=== PATIENT | male | born 1960 | race African-American/Black ===

== ENCOUNTER 2018-01-24 13:50 | Emergency (ER) | payer SELFPAY ==
--- NOTE | 2018-01-24 14:17 | ER Document Report ---
ED Medical Screen (RME) - General Chief Complaint: Flank Pain Stated Complaint: BACK PAIN, BODY PAIN Time Seen by Provider: 01/24/18 14:14 Mode of Arrival: Ambulatory Information source: Patient, [facility] Records Notes: 57-year-old male with diabetes presents with complaint of abdominal pain and lower extremity pain that started 1 week prior to arrival. Patient states the pain started in his feet and a scented to his abdomen. He describes it as sharp , intermittent. Admits that his sugars have been running high. I have greeted and performed a rapid initial assessment of this patient. A comprehensive ED assessment and evaluation of the patient, analysis of test results and completion of medical decision making process we will be contacted by additional ED providers. PHYSICAL EXAMINATION: Vital signs reviewed-tachycardic GENERAL: Well-appearing, well-nourished and in no acute distress. LUNGS: No respiratory distress Musculoskeletal: Normal range of motion NEUROLOGICAL: Normal speech, normal gait. PSYCH: Normal mood, normal affect. SKIN: Warm, Dry, normal turgor, no rashes or lesions noted. TRAVEL OUTSIDE OF THE [place] IN LAST 30 DAYS: No - HPI Onset: Other Onset/Duration: Persistent Quality of pain: Burning, Stabbing Severity: Moderate Associated Symptoms: denies: Chest pain, Fever Exacerbated by: Denies Relieved by: Denies Similar symptoms previously: Yes Recently seen / treated by doctor: No - Related Data Allergies/Adverse Reactions: No Known Allergies Allergy (Unverified 10/06/14 22:13) Past Medical History - Immunizations Hx Diphtheria, Pertussis, Tetanus Vaccination: Yes Physical Exam - Vital signs Vitals: Temp Pulse Resp BP Pulse Ox 98.7 F 102 H 20 150/95 H 100 01/24/18 14:07 01/24/18 14:07 01/24/18 14:07 01/24/18 14:07 01/24/18 14:07 Course - Vital Signs Vital signs: Temp Pulse Resp BP Pulse Ox 98.7 F 102 H 20 150/95 H 100 01/24/18 14:07 01/24/18 14:07 01/24/18 14:07 01/24/18 14:07 01/24/18 14:07 Doctor's Discharge - Discharge Referrals: KALPANA SHARP MD [Primary Care Provider] - Follow up as needed
[2018-01-24 15:41] LABS: ABSOLUTE BASOPHILS # (AUTO) 0.1 10^3/uL (0.0-0.2); ABSOLUTE EOSINOPHILS # (AUTO) 0.8 10^3/uL (0.0-0.6); ABSOLUTE LYMPHOCYTES (AUTO) 1.8 10^3/uL (0.5-4.7); ABSOLUTE MONOCYTES (AUTO) 0.5 10^3/uL (0.1-1.4); ABSOLUTE NEUT (AUTO) 3.8 10^3/uL (1.7-8.2); BASOPHILS % (AUTO) 0.9 % (0-2); EOSINOPHILS % (AUTO) 11.8 % (0-6); HEMATOCRIT 43.5 % (37.9-51.0); HEMOGLOBIN 14.4 g/dL (13.5-17.0); LYMPHOCYTES % (AUTO) 26.5 % (13-45); MEAN CORPUSCULAR HEMOGLOBIN 27.3 pg (27.0-33.4); MEAN CORPUSCULAR VOLUME 83 fl (80-97); MONOCYTES % (AUTO) 6.5 % (3-13); PLATELET COUNT 269 10^3/uL (150-450); RED BLOOD COUNT 5.25 10^6/uL (4.35-5.55); RED CELL DISTRIBUTION WIDTH 13.1 % (11.5-14.0); SEGMENTED NEUTROPHILS % (AUTO) 54.3 % (42-78); TOTAL CELLS COUNTED % (AUTO) 100 %; WHITE BLOOD COUNT 6.9 10^3/uL (4.0-10.5)
[2018-01-24 15:42] LABS: APPEARANCE,URINE CLEAR; BILIRUBIN,URINE NEGATIVE (NEGATIVE); COLOR,URINE YELLOW; GLUCOSE, URINE >=500 mg/dL (NEGATIVE); KETONES,URINE NEGATIVE (NEGATIVE); LEUKOCYTE ESTERASE,URINE NEGATIVE (NEGATIVE); NITRITE,URINE NEGATIVE (NEGATIVE); PROTEIN,URINE 30 mg/dL (NEGATIVE); URINE SPECIFIC GRAVITY 1.023; UROBILINOGEN,URINE NEGATIVE mg/dL (<2.0)
[2018-01-24 16:05] LABS: ALANINE AMINOTRANSFERASE 13 U/L (21-72); ALBUMIN 4.8 g/dL (3.5-5.0); ALKALINE PHOSPHATASE 84 U/L (38-126); ANION GAP 10 (5-19); ASPARTATE AMINO TRANSFERASE 23 U/L (17-59); BILIRUBIN,DIRECT 0.3 mg/dL (0.0-0.4); BILIRUBIN,TOTAL 0.7 mg/dL (0.2-1.3); BLOOD UREA NITROGEN 13 mg/dL (7-20); CALCIUM 9.8 mg/dL (8.4-10.2); CARBON DIOXIDE 25 mmol/L (22-30); CHLORIDE 103 mmol/L (98-107); GLUCOSE 217 mg/dL (75-110); LIPASE 274.8 U/L (23-300); POTASSIUM 4.1 mmol/L (3.6-5.0); SODIUM 138.1 mmol/L (137-145)
--- NOTE | 2018-01-24 17:05 | ER Document Report ---
ED General - General Chief Complaint: Flank Pain Stated Complaint: BACK PAIN, BODY PAIN Time Seen by Provider: 01/24/18 14:14 Mode of Arrival: Ambulatory TRAVEL OUTSIDE OF THE [place] IN LAST 30 DAYS: No - Related Data Allergies/Adverse Reactions: No Known Allergies Allergy (Unverified 10/06/14 22:13) Past Medical History - General Information source: Patient, [facility] Records - Social History Smoking Status: Current Some Day Smoker Frequency of alcohol use: 1-2 times a week Drug Abuse: None Family History: Reviewed & Not Pertinent Patient has suicidal ideation: No Patient has homicidal ideation: No Endocrine Medical History: Reports: Hx Diabetes Mellitus Type 2 Renal/ Medical History: Denies: Hx Peritoneal Dialysis - Immunizations Hx Diphtheria, Pertussis, Tetanus Vaccination: Yes Physical Exam - Vital signs Vitals: Temp Pulse Resp BP Pulse Ox 98.7 F 102 H 20 150/95 H 100 01/24/18 14:07 01/24/18 14:07 01/24/18 14:07 01/24/18 14:07 01/24/18 14:07 Course - Vital Signs Vital signs: Temp Pulse Resp BP Pulse Ox 98.7 F 102 H 20 150/95 H 100 01/24/18 14:07 01/24/18 14:07 01/24/18 14:07 01/24/18 14:07 01/24/18 14:07 - Laboratory Result Diagrams: 01/24/18 15:15 01/24/18 15:15 Laboratory results interpreted by me: 01/24/18 01/24/18 01/24/18 14:20 15:15 15:15 Eosinophils % 11.8 H Absolute Eosinophils 0.8 H Glucose 217 H POC Glucose 223 H ALT 13 L Urine Protein Urine Glucose (UA) 01/24/18 15:15 Eosinophils % Absolute Eosinophils Glucose POC Glucose ALT Urine Protein 30 H Urine Glucose (UA) >=500 H Discharge - Discharge Clinical Impression: Flank pain, Musculoskeletal strain Condition: Stable Disposition: HOME, SELF-CARE Additional Instructions: It is most likely that your pain is being caused by musculoskeletal strain. Workup today was unremarkable. I have refilled your Glucophage medication as per your request. I highly recommend reducing the amount of alcohol your intaking. Please follow-up with your primary care provider. You may also take ibuprofen with the Flexeril that I have prescribed for your pain. Prescriptions: Cyclobenzaprine HCl [Flexeril 10 mg Tablet] 10 mg PO TIDP PRN #15 tab PRN Reason: Metformin HCl 1,000 mg PO BID #60 tablet Referrals: KALPANA SHARP MD [ACTIVE STAFF] - Follow up as needed
[2018-01-24 18:20] VITALS: BP 150/100
== END 2018-01-24 18:18 | disposition home or self-care (01) ==
LOC: ER 13:50
DX: R10.9 Unspecified abdominal pain (principal); M54.9 Dorsalgia, unspecified; M79.10 Myalgia, unspecified site; E11.9 Type 2 diabetes mellitus without complications; R10.30 Lower abdominal pain, unspecified; M79.671 Pain in right foot; M79.672 Pain in left foot; F17.200 Nicotine dependence, unspecified, uncomplicated
CPT/HCPCS: 36415; 80053; 81001; 82962; 83690; 85025; 99284

== ENCOUNTER 2018-11-09 20:55 | Emergency (ER) | payer OTHER ==
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
[2018-11-09 23:08] VITALS: BP 121/57
== END 2018-11-09 23:05 | disposition home or self-care (01) ==
LOC: ER 20:55
DX: S00.81XA Abrasion of other part of head, initial encounter (principal); V49.9XXA Car occupant (driver) (passenger) injured in unspecified traffic accident, initial encounter; F10.129 Alcohol abuse with intoxication, unspecified; E10.9 Type 1 diabetes mellitus without complications
CPT/HCPCS: 70450; 72125

== ENCOUNTER → 2019-01-19 | Outpatient (CLI) | payer SELFPAY ==
--- NOTE | 2019-01-19 11:45 | RADIOLOGY REPORT (SQ) ---
EXAM DESCRIPTION: KNEE BILAT AP UPRIGHT COMPLETED DATE/TIME: 01/19/2019 10:13 am REASON FOR STUDY: BILATERAL PRIMARY OSTEOARTHRITIS OF KNEE M17.0 BILATERAL PRIMARY OSTEOARTHRITIS O F KNEE COMPARISON: None. NUMBER OF VIEWS: One view. TECHNIQUE: AP standing bilateral knees. LIMITATIONS: None. FINDINGS: MINERALIZATION: Normal. RIGHT KNEE BONES: No acute fracture. No worrisome bone lesions. MEDIAL COMPARTMENT: No significant osteophytes. Mild joint space narrowing. No chondrocalcinosis. LATERAL COMPARTMENT: No significant osteophytes. No joint space narrowing. No chondrocalcinosis. PATELLOFEMORAL COMPARTMENT: No significant osteophytes. No joint space narrowing. No chondrocalc inosis. LEFT KNEE BONES: No acute fracture. No worrisome bone lesions. MEDIAL COMPARTMENT: No significant osteophytes. Mild joint space narrowing. No chondrocalcinosis. LATERAL COMPARTMENT: No significant osteophytes. No joint space narrowing. No chondrocalcinosis. PATELLOFEMORAL COMPARTMENT: No significant osteophytes. No joint space narrowing. No chondrocalc inosis. IMPRESSION: MILD MEDIAL JOINT SPACE NARROWING IN BOTH KNEES. NO LARGE OSTEOPHYTES. NO ACUTE FINDIN GS. TECHNICAL DOCUMENTATION: JOB ID: [id number] [employer]- All Rights Reserved Reading location - IP/workstation name: [email or web address]
== END ==
LOC: OD 09:58
PROVIDERS: ATTEND Internal Medicine
DX: M17.0 Bilateral primary osteoarthritis of knee (principal)
CPT/HCPCS: 73565